=== PATIENT | male | born 1990 | race Caucasian/White ===

== ENCOUNTER 2018-03-08 15:07 | Emergency (ER) | payer OTHER ==
[~2018-03-08] VITALS: Ht 185.4 cm; Wt 97.7 kg
[2018-03-08 15:44] VITALS: Ht 185.4 cm; Wt 97.7 kg
[2018-03-08] MEDS ORDERED: DEPAKOTE500 MG PO (15:46)
[2018-03-08] MEDS ORDERED: PAXIL40 MG PO (15:47)
[2018-03-08] MEDS ORDERED: VALIUM10 MG PO (15:47)
[2018-03-08] MEDS ORDERED: TOFRANIL25 MG PO (15:48)
[2018-03-08] MEDS ORDERED: INVEGA9 MG/BLIST PO (15:48)
[2018-03-08] MEDS ORDERED: VOLTAREN75 MG PO (18:03)
[2018-03-08] MEDS ORDERED: KEFLEX500 MG PO (18:03)
[2018-03-08 18:38] VITALS: BP 123/73
[2018-03-10 14:23] LABS: HEPATITIS C ANTIBODY 0.1 (0.0-0.9)
== END 2018-03-08 18:25 | disposition home or self-care (01) ==
LOC: D.ER 15:07
PROVIDERS: Family Medicine
DX: S61.210A Laceration without foreign body of right index finger without damage to nail, initial encounter (principal); W26.8XXA Contact with other sharp object(s), not elsewhere classified, initial encounter; Y93.89 Activity, other specified; Y92.019 Unspecified place in single-family (private) house as the place of occurrence of the external cause; I10 Essential (primary) hypertension; K21.9 Gastro-esophageal reflux disease without esophagitis; F17.200 Nicotine dependence, unspecified, uncomplicated; Z86.59 Personal history of other mental and behavioral disorders

== ENCOUNTER 2018-05-19 11:06 | Emergency (ER) | payer MEDICAID ==
[~2018-05-19] VITALS: Ht 185.4 cm; Wt 97.7 kg
[~2018-05-19 11:06] MED LIST: DEPAKOTE500 MG PO; INVEGA9 MG/BLIST PO; KEFLEX500 MG PO; PAXIL40 MG PO; TOFRANIL25 MG PO; VALIUM10 MG PO; VOLTAREN75 MG PO
[2018-05-19 11:39] VITALS: Ht 185.4 cm; Wt 97.7 kg
[2018-05-19] MEDS ORDERED: CYCLOBENZAPRINE10 MG PO (16:26)
[2018-05-19] MEDS ORDERED: HYDROCODON-ACE1 EAC7 PO (16:26)
[2018-05-19 17:01] VITALS: BP 113/81
== END 2018-05-19 17:01 | disposition home or self-care (01) ==
LOC: D.ER 11:06
DX: M43.16 Spondylolisthesis, lumbar region (principal); M54.16 Radiculopathy, lumbar region; I10 Essential (primary) hypertension; Z86.59 Personal history of other mental and behavioral disorders